=== PATIENT | female | born 1965 ===

== ENCOUNTER 2024-05-04 02:09 | Outpatient (CLI) | payer BC, SELFPAY ==
--- NOTE | 2024-05-04 | DI.MRI_ITS ---
Exam(s) MR PELVIS WO EXAM: MR PELVIS WO CLINICAL HISTORY: R29.898 Left Leg Weakness, dernveration on EMG w/HX of pain/weakness TECHNIQUE: Multiplanar multisequence MRI was performed without intravenous contrast. COMPARISON: No exams were available for comparison FINDINGS: BONES/JOINTS: No fracture or contusion pattern. There is mild hyperintense signal seen in the posteri or aspect of the left sacroiliac joint. There is mild hyperintense signal seen in the left SI joint syndesmosis. There is also mild hyperintense signal seen in the left sacrum adjacent to the SI joint . MUSCULOTENDINOUS STRUCTURES: There is hyperintense signal seen on the T2 weighted images in the left iliacus muscle, the left erector spinae muscles beginning at the L3-L4 level and extending inferiorly to about S2 and the left obturator externus muscle. No muscular fatty atrophy. SOFT TISSUES: No retroperitoneal mass is identified. No area of impingement or compression of the grady mbar plexus is appreciated. OTHER FINDINGS: There fibroids in the uterus. The largest is in the fundus on the right and measures 2 x 2.3 cm. The next largest measures 1.4 x 1.3 cm and is located in the anterior fundus. L2-3: No disc herniations or bulges are present. No central spinal canal or neural foraminal stenosis . L3-4: There is a mild diffuse disc bulge which extends into the left neural foramen causing moderate left neural foraminal stenosis. No significant central spinal canal or right neural foraminal stenos is is seen. No central spinal canal or neural foraminal stenosis. L4-5: No disc herniations or bulges are present. No central spinal canal or neural foraminal stenosis . L5-S1: No disc herniations or bulges are present. There are degenerative changes of the facets. No s ignificant central spinal canal stenosis is present.No significant neural foraminal stenosis is seen. IMPRESSION: 1. Hyperintense signal seen on the T2 weighted images in the left iliacus muscle, left actor spinae m uscles in the left obturator externus muscle. Differential considerations include neuropathy, infect ion/inflammation, trauma or myopathy. 2. Degenerative changes at L3-L4 causing moderate left neural foraminal stenosis. 3. Abnormal signal is seen in the left SI joint which may reflect sacroiliitis. 4. Uterine fibroids. DATA REPOSITORY:
== END 2024-05-04 02:29 ==
LOC: DI 02:09
PROVIDERS: PCP Registered Nurse; Visit Provider Psychiatry & Neurology Neurology
DX: M48.062 Spinal stenosis, lumbar region with neurogenic claudication (principal)
CPT/HCPCS: 72195